=== PATIENT | male | born 1940 | race Caucasian/White ===

== ENCOUNTER 2019-11-02 11:27 | Day surgery (SDC) | payer MEDICARE, OTHER ==
[~2019-11-02 11:27] MED LIST: Buffered Lidocaine 1% SYRIN 1 ml INTRADERM ONE; Dexamethasone IV 4 MG/ML VIAL 1 ml VIAL IV SLOW PU ONE; Famotidine IV 10 MG/ML 2 ml VIAL (20 mg) IV ONE; Lactated Ringers 1000 ml BAG 1,000 ML IV SCH
[2019-11-02] MEDS ORDERED: cefTRIAXone(*) 2 GM ADDV.VIAL IVPB ONE (12:03)
[2019-11-02] MEDS ORDERED: Iohexol 180 (CONTRAST) 10 ML SDV IV ONE (12:23)
[2019-11-02] MEDS ORDERED: fentaNYL 250 mcg/5 ml 50 MCG/ML 5 ml VIAL (250 MCG) ONE (12:27)
[2019-11-02] MEDS ORDERED: Propofol 10 MG/ML 20 ML BTL ONE (12:27)
[2019-11-02] MEDS ORDERED: Midazolam 2 mg/2 ml VIAL 1 mg/ml 2 ml VIAL (2 mg) ONE (12:27)
[2019-11-02] MEDS ORDERED: Lidocaine 2% PF 5 ML VIAL ONE (12:27)
[2019-11-02] MEDS ORDERED: Rocuronium 50 mg VIAL 10 mg/ml 5 ml VIAL (50 mg) ONE ×2 (12:31→12:32)
[2019-11-02] MEDS ORDERED: Phenylephrine 40 mcg/mL 10mL (400mcg) SYRINGE ONE (13:04)
[2019-11-02] MEDS ORDERED: EPHEDrine (Pressors) 50 MG/ML VIAL ONE (13:05)
[2019-11-02] MEDS ORDERED: Furosemide 20 mg/2 ml IV VIAL ONE (13:25)
[2019-11-02] MEDS ORDERED: Fluorescein 10% INJ 100 MG/ML AMP ONE (13:50)
[2019-11-02] MEDS ORDERED: Dexamethasone IV 4 MG/ML VIAL 1 ml VIAL ONE (14:09)
[2019-11-02] MEDS ORDERED: Ondansetron 4 mg VIAL 2 MG/ML 2 ml VIAL ONE (14:09)
[2019-11-02] MEDS ORDERED: HYDROmorphone 1 MG/1 ML SYRINGE ONE ×2 (14:54→15:38)
[2019-11-02] MEDS ORDERED: Naloxone 0.4 mg VIAL 0.4 mg/ml 1 ml VIAL IV PRN (15:28)
[2019-11-02] MEDS ORDERED: Prochlorperazine 5 mg/ml 2 ml VIAL (10 mg) IV PRN (15:28)
[2019-11-02] MEDS ORDERED: diPHENhydraMINE IV 50 MG/ML 1 ml VIAL (BENADRYL) IV PRN (15:28)
[2019-11-02] MEDS ORDERED: HYDROmorphone 1 MG/1 ML SYRINGE IV PRN (15:28)
[2019-11-02 17:20] VITALS: BP 157/85
== END 2019-11-02 17:00 | disposition home or self-care (01) ==
LOC: OR 11:27
PROVIDERS: ATTEND Urology